=== PATIENT | male | born 1990 | race Caucasian/White ===

== ENCOUNTER 2017-02-28 08:15 | Emergency (ER) | payer BC ==
[~2017-02-28] VITALS: Ht 177.8 cm; Wt 73.0 kg
[2017-02-28 08:16] VITALS: BP 151/87; PULSE 137; RESP 20; TEMP 97.8; O2SAT 100
[2017-02-28 09:13] VITALS: BP 121/75; PULSE 81; RESP 14; O2SAT 99
--- NOTE | 2017-02-28 09:20 | PD ---
HPI Chief Complaint: GI Complaint Time Seen by Provider: 09:09 Travel History International Travel<30 days: No Contact w/Intl Traveler<30days: No Traveled to known affect area: No History of Present Illness HPI 26yo M with no PMH presents to the ED with c/o epigastric abdominal pain, vomiting and nonbloody diarrhea today. States pain is sharp, intermittent and nonradiating. Had appendectomy before. Denies any fever, chest pain, sob, dysuria, hematuria, testicular pain or penile discharge. Pt states he had some tinging in his fingers bilaterally while driving that has now resolved. Denies alcohol or drug use. PFSH Past Medical History Medical History: Denies Significant Hx Past Surgical History Appendectomy: Yes Social History Alcohol Use: Yes (OCC- LAST DRINK THIS AM AT 0300) Tobacco Use: No Substance Use: No Allergies-Medications (Allergen,Severity, Reaction): Coded Allergies: No Known Allergies (Unverified , 02/28/17) Reported Meds & Prescriptions Reported Meds & Active Scripts Active No Active Prescriptions or Reported Medications Review of Systems Except as stated in HPI: all other systems reviewed are Neg Physical Exam Narrative GENERAL: 26yo M in mild distress. SKIN: Focused skin assessment warm/dry. HEAD: Atraumatic. Normocephalic. EYES: Pupils equal and round at 4 mm bilaterally. EOMI. No scleral icterus. No injection or drainage. CARDIOVASCULAR: Regular rate and rhythm. No murmur appreciated. RESPIRATORY: No accessory muscle use. Clear to auscultation. Breath sounds equal bilaterally. GASTROINTESTINAL: Abdomen soft, +TTP epigastric region. No rebound tenderness or guarding. MUSCULOSKELETAL: No obvious deformities. No clubbing. No cyanosis. No edema. NEUROLOGICAL: Awake and alert. No obvious cranial nerve deficits. Motor grossly within normal limits. Normal speech. PSYCHIATRIC: Appropriate mood and affect; insight and judgment normal. Data Data Last Documented VS Vital Signs Date Time Temp Pulse Resp B/P Pulse Ox O2 Delivery O2 Flow Rate FiO2 02/28/17 09:13 81 14 121/75 99 Room Air 02/28/17 08:16 97.8 Orders Complete Blood Count With Diff (02/28/17 09:16) Comprehensive Metabolic Panel (02/28/17 09:16) Lipase (02/28/17 09:16) Ondansetron Inj (Zofran Inj) (02/28/17 09:30) Pantoprazole Inj (Protonix Inj) (02/28/17 09:30) Sodium Chloride 0.9% Flush (Ns Flush) (02/28/17 09:30) Electrocardiogram (02/28/17 09:16) Potassium Chloride (Kcl) (02/28/17 10:45) Labs Laboratory Tests Test 02/28/17 09:25 White Blood Count 5.9 TH/MM3 Red Blood Count 5.30 MIL/MM3 Hemoglobin 14.8 GM/DL Hematocrit 43.5 % Mean Corpuscular Volume 82.1 FL Mean Corpuscular Hemoglobin 27.9 PG Mean Corpuscular Hemoglobin 34.0 % Concent Red Cell Distribution Width 13.5 % Platelet Count 239 TH/MM3 Mean Platelet Volume 10.1 FL Neutrophils (%) (Auto) 56.1 % Lymphocytes (%) (Auto) 29.5 % Monocytes (%) (Auto) 8.0 % Eosinophils (%) (Auto) 5.4 % Basophils (%) (Auto) 1.0 % Neutrophils # (Auto) 3.3 TH/MM3 Lymphocytes # (Auto) 1.7 TH/MM3 Monocytes # (Auto) 0.5 TH/MM3 Eosinophils # (Auto) 0.3 TH/MM3 Basophils # (Auto) 0.1 TH/MM3 CBC Comment DIFF FINAL Differential Comment Sodium Level 138 MEQ/L Potassium Level 3.3 MEQ/L Chloride Level 104 MEQ/L Carbon Dioxide Level 22.3 MEQ/L Anion Gap 12 MEQ/L Blood Urea Nitrogen 12 MG/DL Creatinine 1.04 MG/DL Estimat Glomerular Filtration 87 ML/MIN Rate Random Glucose 90 MG/DL Calcium Level 10.1 MG/DL Total Bilirubin 0.7 MG/DL Aspartate Amino Transf 28 U/L (AST/SGOT) Alanine Aminotransferase 34 U/L (ALT/SGPT) Alkaline Phosphatase 94 U/L Total Protein 7.9 GM/DL Albumin 4.6 GM/DL Lipase 74 U/L MDM Medical Decision Making Medical Screen Exam Complete: Yes Emergency Medical Condition: Yes Differential Diagnosis Gastroenteritis vs. pancreatitis vs. anxiety Narrative Course 26yo M with nausea, epigastric abdominal pain and diarrhea. Labs reviewed, no leukocytosis. K: 3.3, replaced orally. Lipase normal. Pt given zofran and pantoprazole and reevaluated at bedside. Abdominal pain has resolved and pt is no longer nauseous. Pt is tolerating PO. VS stable. Pt's heart rate was always in the 80s when I evaluated him in medical bed. Unsure of the HR that was documented to be 137 at triage. Diagnosis Primary Impression: Gastroenteritis Patient Instructions: General Instructions Departure Forms: Tests/Procedures Additional Instructions: Please follow up with your PMD in 3-7 days. Return to the ED if symptoms worsen. Med/Other Pt SpecificInfo: No Change to Meds Scripts No Active Prescriptions or Reported Meds Disposition: 01 DISCHARGE HOME Condition: Stable Marium Chappell DO Feb 28, 2017 09:20
[2017-02-28] MEDS ORDERED: PANTOPRAZOLE SODIUM 40 MG VIAL IVP ONE (09:30)
[2017-02-28] MEDS ORDERED: ONDANSETRON HCL 4 MG/2 ML VIAL IVP ONE (09:30)
[2017-02-28] MEDS ORDERED: SODIUM CHLORIDE 0.9% FLUSH 10 ML FLUSH IV FLUSH PRN (09:30)
[2017-02-28 09:59] LABS: AUTOMATED NEUTROPHIL # 3.3 TH/MM3 (1.8-7.7); BASOPHIL # 0.1 TH/MM3 (0-0.2); EOSINOPHIL # 0.3 TH/MM3 (0-0.4); EOSINOPHIL % 5.4 % (0.0-4.0); HEMATOCRIT 43.5 % (39.0-51.0); HEMO FLAGS DIFF FINAL; LYMPH % 29.5 % (9.0-44.0); LYMPHOCYTE # 1.7 TH/MM3 (1.0-4.8); MEAN CELL VOLUME 82.1 FL (80.0-100.0); MEAN CORPUSCULAR HEMOGLOBIN 27.9 PG (27.0-34.0); NEUT % 56.1 % (16.0-70.0); PLATELET COUNT 239 TH/MM3 (150-450); RED CELL DISTRIBUTION WIDTH 13.5 % (11.6-17.2); WHITE BLOOD COUNT 5.9 TH/MM3 (4.0-11.0)
[2017-02-28 10:17] LABS: ANION GAP 12 MEQ/L (5-15); AST (GOT) 28 U/L (15-37); BICARBONATE 22.3 MEQ/L (21.0-32.0); BLOOD UREA NITROGEN 12 MG/DL (7-18); CHLORIDE 104 MEQ/L (98-107); GLOMERULAR FILTRATION RATE 87 ML/MIN (>89); POTASSIUM 3.3 MEQ/L (3.5-5.1); SODIUM (NA) 138 MEQ/L (136-145)
[2017-02-28 10:18] LABS: ALT (GPT) 34 U/L (12-78)
[2017-02-28 10:20] LABS: ALKALINE PHOSPHATASE 94 U/L (45-117); TOTAL BILIRUBIN ADULT 0.7 MG/DL (0.2-1.0)
[2017-02-28] MEDS ORDERED: POTASSIUM CHLORIDE 20 MEQ CONTROLLED RELEASE TAB PO ONE (10:45)
--- NOTE | 2017-02-28 10:53 | EKG ---
Date Performed: 02/28/2017 Time Performed: 09:22:43 PTAGE: 26 years EKG: Sinus rhythm WITH SINUS ARRHYTHMIA NORMAL ECG NO PREVIOUS TRACING DOCTOR: Kt Mckeon Interpretating Date/Time 02/28/2017 10:52:40
[2017-02-28 12:36] VITALS: BP 124/80
== END 2017-02-28 12:37 | disposition home or self-care (01) ==
LOC: NEPC 08:15
DX: K52.9 Noninfective gastroenteritis and colitis, unspecified (principal)
CPT/HCPCS: 80053; 83690; 85025; 93005; 96374; 96375; 99284; C9113; J2405

== ENCOUNTER 2017-04-14 21:20 | Emergency (ER) | payer SELFPAY ==
[~2017-04-14] VITALS: Ht 177.8 cm; Wt 73.0 kg
[2017-04-14 21:23] VITALS: BP 124/70; PULSE 67; RESP 16; TEMP 97.8; O2SAT 99
== END 2017-04-14 22:43 | disposition left against medical advice (07) ==
LOC: NED 21:20
DX: R30.0 Dysuria (principal); Z53.21 Procedure and treatment not carried out due to patient leaving prior to being seen by health care provider
CPT/HCPCS: 99281

== ENCOUNTER 2017-04-28 21:33 | Emergency (ER) | payer BC ==
[~2017-04-28] VITALS: Ht 172.7 cm; Wt 70.0 kg
[2017-04-28 21:35] VITALS: BP 122/84; PULSE 76; RESP 16; TEMP 98.1; O2SAT 99
[2017-04-28] MEDS ORDERED: DOXY100C PO (21:50)
--- NOTE | 2017-04-28 21:54 | PD ---
HPI Chief Complaint: Abdominal Pain Time Seen by Provider: 21:44 Travel History International Travel<30 days: No Contact w/Intl Traveler<30days: No Traveled to known affect area: No History of Present Illness HPI 26-year-old white male presents to the department with complains of tenderness to the base of his left testicle for the past week and a half. He states that he had no some discomfort after moving earlier in the week. He states that the pain is constant. Mild in nature. He denies any urethral symptoms. No nausea vomiting. He is concerned that he may have a hernia. [facility] Past Medical History Medical History: Denies Significant Hx Diminished Hearing: No Tetanus Vaccination: < 5 Years Past Surgical History Appendectomy: Yes Social History Alcohol Use: Yes (occasionally) Tobacco Use: No Substance Use: No Allergies-Medications (Allergen,Severity, Reaction): Coded Allergies: No Known Allergies (Unverified , 04/28/17) Reported Meds & Prescriptions Reported Meds & Active Scripts Active Doxycycline Hyclate 100 Mg Cap 100 Mg PO BID Review of Systems Except as stated in HPI: all other systems reviewed are Neg Physical Exam Narrative GENERAL: Well-developed, well-nourished in no acute distress. Nontoxic appearing. HEAD: Normocephalic, atraumatic. EYES: Pupils equal round and reactive. Extraocular motions intact. No scleral icterus. No injection or drainage. ENT: TMs clear without erythema. The external auditory canals clear. Nose: clear . Posterior pharynx is pink and moist. No tonsillar edema or exudate. Uvula midline. Airway patent. NECK: Trachea midline.Supple, nontender, moves head freely. No central bony tenderness or spasm. CARDIOVASCULAR: Regular rate and rhythm without murmurs, gallops, or rubs. RESPIRATORY: Clear to auscultation. Breath sounds equal bilaterally. No wheezes , rales, or rhonchi. GASTROINTESTINAL: Abdomen soft, non-tender, nondistended. No hepato-splenomegaly , or palpable masses. No guarding. EXTREMITIES: No clubbing, cyanosis, or edema. No joint tenderness, effusion, or edema noted. BACK: Nontender without deformity or crepitance. No flank tenderness. GENITOURINARY: Circumcised. Testes descended bilaterally without evidence of rotation. No lesions or erythema. No urethral discharge. Patient's exam is standing up. There is no evidence of any hernia. Patient has some mild tenderness to the left testicle epididymis Data Data Last Documented VS Vital Signs Date Time Temp Pulse Resp B/P (MAP) Pulse Ox O2 Delivery O2 Flow Rate FiO2 04/28/17 21:35 98.1 76 16 122/84 (97) 99 Room Air Orders Orders Ibuprofen (Motrin) (04/28/17 22:00) Doxycycline (Vibramycin) (04/28/17 22:00) MDM Medical Decision Making Medical Screen Exam Complete: Yes Emergency Medical Condition: Yes Medical Record Reviewed: Yes Differential Diagnosis Differential diagnoses: Hernia, epididymitis, STD Narrative Course Patient is given doxycycline 100 and Ultram 600 mg by mouth. This is left epididymitis Diagnosis Primary Impression: Left epididymitis Patient Instructions: General Instructions Additional Instructions: Rest. Increase fluids. Medications as directed. 3 Advil every 6 hours as needed for pain. Follow-up with a medical doctor in one week. Return to the ER if any problems. Med/Other Pt SpecificInfo: Prescription(s) given Scripts Doxycycline Hyclate (Doxycycline Hyclate) 100 Mg Cap 100 MG PO BID for Infection, #20 CAP 0 Refills Prov: Marbella Peraza MD 04/28/17 Disposition: 01 DISCHARGE HOME Condition: Stable Ryan Ayoub Apr 28, 2017 21:54
[2017-04-28] MEDS ORDERED: DOXYCYCLINE HYCLATE 100 MG CAP PO ONE (22:00)
[2017-04-28] MEDS ORDERED: IBUPROFEN 600 MG TAB PO ONE (22:00)
== END 2017-04-28 22:03 | disposition home or self-care (01) ==
LOC: NEPD 21:33
DX: N45.1 Epididymitis (principal)
CPT/HCPCS: 99283

== ENCOUNTER 2017-08-05 22:06 | Emergency (ER) | payer MEDICAID, OTHER ==
[~2017-08-05] VITALS: Ht 172.7 cm; Wt 70.0 kg
[~2017-08-05 22:06] MED LIST: DOXY100C PO
[2017-08-05 22:09] VITALS: BP 135/81; PULSE 81; RESP 16; TEMP 98.6; O2SAT 99
== END 2017-08-05 23:24 | disposition left against medical advice (07) ==
LOC: NED 22:06
DX: Z00.00 Encounter for general adult medical examination without abnormal findings (principal); Z53.21 Procedure and treatment not carried out due to patient leaving prior to being seen by health care provider
CPT/HCPCS: 99281